=== PATIENT | female | born 1985 | race Caucasian/White ===

== ENCOUNTER 2020-09-22 16:55 | Emergency (ER) | payer SELFPAY ==
--- NOTE | 2020-09-22 19:40 | PC.NURSE ---
pt not present in the waiting room at this time.
== END 2020-09-22 20:06 | disposition left against medical advice (07) ==
LOC: HO.ED 20:04
PROVIDERS: Emergency Provider Emergency Medicine; PCP Internal Medicine
DX: R05 Cough (principal)